=== PATIENT | male | born 1960 | race Caucasian/White ===

== ENCOUNTER 2017-07-22 16:06 | Day surgery (SDC) | payer OTHER, BC ==
[2017-07-22] MEDS ORDERED: PROPOFOL 40 ML (16:10)
[2017-07-22] MEDS ORDERED: LIDOCAINE 2% (SDV) 5 ML INJ (16:10)
== END 2017-07-22 17:18 | disposition home or self-care (01) ==
LOC: GIL 16:06
DX: Z12.11 Encounter for screening for malignant neoplasm of colon (principal); D12.6 Benign neoplasm of colon, unspecified; K57.90 Diverticulosis of intestine, part unspecified, without perforation or abscess without bleeding; K64.8 Other hemorrhoids
CPT/HCPCS: 45380; 88305

== ENCOUNTER 2018-11-12 10:12 | Emergency (ER) | payer OTHER ==
[2018-11-12] MEDS: LIDOCAINE 1% (MDV) 20 ML INJ SC (10:55)
[2018-11-12] MEDS: LIDOCAINE 4% CR TOP (10:55)
[2018-11-12] MEDS: IBUPROFEN 800 MG TAB PO (11:21)
[2018-11-12] MEDS: NEOMYC/POLYMYX/BACIT 30 GM OINT TOP (11:21)
== END 2018-11-12 13:21 | disposition home or self-care (01) ==
LOC: FTE 10:12
DX: K64.9 Unspecified hemorrhoids (principal)
CPT/HCPCS: 46083; 99284-25

== ENCOUNTER 2018-11-14 12:42 | Emergency (ER) | payer OTHER | END 2018-11-14 14:43 | disposition home or self-care (01) | LOC: FTE 14:43 | DX: K64.9 Unspecified hemorrhoids (principal) | CPT/HCPCS: 99284; Z7502 ==